=== PATIENT | male | born 1960 | race Two or more races ===

== ENCOUNTER 2020-11-05 12:56 | Outpatient (REF) | payer OTHER, SELFPAY ==
[2020-11-05 14:00] LABS: MANUAL DIFF FLAG NO
[2020-11-05 14:19] LABS: Basophils Percent Auto 0.8 % (0-2); Eosinophils Absolute Auto 0.1 X10*3/uL (0.0-0.4); Eosinophils Percent Auto 1.8 % (0-4); Hematocrit 47.3 % (42-52); Hemoglobin 16.3 g/dl (14.0-18.0); Imm Gran Abs Auto 0.01 X10*3/uL (0.00-0.03); Imm Gran Pct Auto 0.2 % (0.0-0.4); Lymphocytes Absolute Auto 1.8 X10*3/uL (1.2-4.9); Lymphocytes Percent Auto 36.4 % (20-40); Mean Corpuscular HGB Conc 34.5 g/dl (31.0-36.0); Mean Corpuscular Hemoglobin 33.1 pg (27.0-33.0); Mean Corpuscular Volume 95.9 fL (80-98); Mean Platelet Volume 9.4 fL (9.4-12.4); Monocytes Absolute Auto 0.7 X10*3/uL (0.1-1.2); Monocytes Percent Auto 12.9 % (2-11); Neutrophils Absolute Auto 2.4 X10*3/uL (2.0-8.3); Neutrophils Percent Auto 47.9 % (45-73); Platelet Count 272 X10*3/uL (160-400); Red Blood Count 4.93 X10*6/uL (4.60-5.80); Red Cell Distribution Width 11.7 % (11.0-16.0)
[2020-11-05 14:33] LABS: Alanine Aminotransferase 16 U/L (0-40); Albumin Level 4.4 g/dL (3.5-5.0); Alkaline Phosphatase 63 U/L (39-117); Anion Gap 13 (12-20); Aspartate Amino Transferase 19 U/L (5-37); Bilirubin Direct 0.3 mg/dL (0.0-0.5); Bilirubin Total 0.9 mg/dL (0.0-1.0); Blood Urea Nitrogen 11 mg/dL (9-16); Calcium 9.1 mg/dL (8.4-10.2); Carbon Dioxide 27 mmol/L (22-29); Chloride 103 mmol/L (96-108); Estimated Glomerular Filt Rate 59; Glucose Random 73 mg/dL (60-115); Potassium 4.4 mmol/L (3.3-5.1); Sodium 139 mmol/L (135-145); Total Protein 7.2 g/dL (6.5-8.0)
[2020-11-05 14:49] LABS: Syphilis Screen Nonreactive (Nonreactive)
[2020-11-05 14:54] LABS: Vitamin D 25-OH Total 27.5 ng/mL (>30)
[2020-11-06 15:58] LABS: Absolute CD3 Count 1472 cells/uL (840-3060); Absolute CD4 Count 713 cells/uL (490-1740); Absolute CD8 Count 762 cells/uL (180-1170); Absolute Lymphocytes 1901 cells/uL (850-3900); CD4 CD8 Ratio 0.94 (0.86-5.00); Percent CD3 Cells 77 % (57-85); Percent CD4 Cells 38 % (30-61); Percent CD8 Cells 40 % (12-42)
[2020-11-07 13:13] LABS: HIV RNA PCR Qn Copies <20 DETECTED copies/mL (NOT DETECTED); HIV RNA PCR Qn Log Copies <1.30 DETECTED (NOT DETECTED)
== END 2020-11-05 12:57 | disposition home or self-care (01) ==
LOC: HO.LAB 12:56
PROVIDERS: Absent Provider Internal Medicine Addiction Medicine; PCP Internal Medicine; Visit Provider Internal Medicine
DX: M17.12 Unilateral primary osteoarthritis, left knee (principal); Z21 Asymptomatic human immunodeficiency virus [HIV] infection status; E55.9 Vitamin D deficiency, unspecified
CPT/HCPCS: 36415; 80048; 80076; 82306; 85025; 86359; 86360; 86780; 87536

== ENCOUNTER 2020-11-11 14:07 | Outpatient (REF) | payer OTHER, SELFPAY ==
--- NOTE | ~2020-11-11 | MM_ITS ---
EXAMINATION: BONE DENSITOMETRY CLINICAL INDICATION: Screening for osteoporosis. COMPARISON: None (current study represents initial baseline exam). TECHNIQUE: Using a [employer] DXA System (software version: 13.1) manufactured by [employer], dual-energy x-ray absorptiometry was performed of the lumbar spine and left hip. The images are of good technical quality. Summary results are attached. FINDINGS: AP SPINE L1-L4: BMD 1.190 g/cm2, Z-score 0.0, T-score -0.2, normal. LEFT FEMUR, NECK: BMD 0.871 g/cm2, Z-score -0.7, T-score -1.5, osteopenia. LEFT FEMUR, TOTAL: BMD 1.055 g/cm2, Z-score 0.1, T-score -0.3, normal. IDENTIFIED RISK FACTORS: None listed. HISTORY OF FRACTURE: None listed. MEDICATIONS: None listed. MM/XR DEXA axial skeleton IMPRESSION: 1. DIAGNOSIS: Osteopenia based on the lowest T-score value of -1.5 in the femoral neck applying World Health Organization criteria. 2. 10-YEAR FRACTURE RISK PREDICTION, FRAX: Major osteoporotic fracture (clinical spine, forearm, hip or shoulder) 3.2%. Hip fracture 0.4%. 3. Treatment Recommendations: NOF guidelines recommend consideration for treatment in postmenopausal women and men age 50 and older presenting with the following: -A hip or vertebral (clinical or morphometric) fracture. -T-score less than or equal to -2.5 at the femoral neck or spine after appropriate evaluation to exclude secondary causes. -Low bone mass at the hip or spine and a 10-year fracture probability by FRAX of greater than or equal to 3% for hip fracture or greater than or equal to 20% for major osteoporotic fracture based on the [place] adapted WHO algorithm. 4. Other Recommendations: All treatment decisions require clinical judgment and consideration of individual patient factors, including patient preferences, comorbidities, previous drug use, risk factors not captured in the FRAX model (e.g. frailty, falls, vitamin D deficiency, increased bone turnover, interval significant decline in bone density) and possible under or overestimation of fracture risk by FRAX. Additional medical evaluation for secondary cause of low bone mineral density may be appropriate. FUTURE SCAN RECOMMENDATION: People with diagnosed cases of osteoporosis or at high risk for fracture should have regular bone mineral density tests. For patients eligible for Medicare, routine testing is allowed once every 2 years. The testing frequency can be increased to one year for patients who have rapidly progressing disease, those who are receiving or discontinuing medical therapy to restore bone mass, or have additional risk factors.
== END 2020-11-11 14:08 | disposition home or self-care (01) ==
LOC: HO.MAMMO 14:07
PROVIDERS: Visit Provider Internal Medicine
DX: Z13.820 Encounter for screening for osteoporosis (principal); E55.9 Vitamin D deficiency, unspecified
CPT/HCPCS: 77080

== ENCOUNTER → 2020-11-28 13:11 | Outpatient (BNVA) | payer OTHER, SELFPAY | PROVIDERS: Visit Provider Internal Medicine | DX: B20 Human immunodeficiency virus [HIV] disease (principal) | CPT/HCPCS: 99212 ==

== ENCOUNTER 2021-05-15 11:44 | Outpatient (REF) | payer OTHER, SELFPAY ==
[2021-05-16 11:22] LABS: HIV RNA PCR Qn Copies 105 copies/mL (NOT DETECTED); HIV RNA PCR Qn Log Copies 2.02 (NOT DETECTED)
[2021-05-18 15:21] LABS: Absolute CD3 Count 1308 cells/uL (840-3060); Absolute CD4 Count 679 cells/uL (490-1740); Absolute CD8 Count 644 cells/uL (180-1170); Absolute Lymphocytes 1687 cells/uL (850-3900); CD4 CD8 Ratio 1.05 (0.86-5.00); Percent CD3 Cells 78 % (57-85); Percent CD4 Cells 40 % (30-61); Percent CD8 Cells 38 % (12-42)
== END 2021-05-15 11:45 | disposition home or self-care (01) ==
LOC: HO.LAB 11:44
PROVIDERS: Absent Provider Internal Medicine; PCP Internal Medicine; Visit Provider Internal Medicine Addiction Medicine
DX: B20 Human immunodeficiency virus [HIV] disease (principal); E55.9 Vitamin D deficiency, unspecified
CPT/HCPCS: 36415; 82306; 86359; 86360; 87536

== ENCOUNTER → 2021-05-29 11:23 | Outpatient (BNVA) | payer OTHER, SELFPAY | PROVIDERS: PCP Internal Medicine; Visit Provider Internal Medicine | DX: B20 Human immunodeficiency virus [HIV] disease (principal); I10 Essential (primary) hypertension | CPT/HCPCS: 99212 ==

== ENCOUNTER 2021-07-21 13:30 | Outpatient (REF) | payer OTHER, SELFPAY ==
[2021-07-21 14:06] LABS: Hematocrit 46.2 % (42-52); Mean Corpuscular HGB Conc 34.6 g/dl (31.0-36.0); Mean Corpuscular Hemoglobin 33.1 pg (27.0-33.0); Mean Corpuscular Volume 95.7 fL (80-98); Mean Platelet Volume 9.4 fL (9.4-12.4); Platelet Count 267 X10*3/uL (160-400); Red Blood Count 4.83 X10*6/uL (4.60-5.80); Red Cell Distribution Width 11.9 % (11.0-16.0); White Blood Count 4.7 X10*3/uL (4.8-10.8)
[2021-07-21 14:34] LABS: Alanine Aminotransferase 20 U/L (0-40); Albumin Level 4.5 g/dL (3.5-5.0); Alkaline Phosphatase 71 U/L (39-117); Anion Gap 15 (12-20); Aspartate Amino Transferase 24 U/L (5-37); Bilirubin Direct 0.3 mg/dL (0.0-0.5); Bilirubin Total 0.8 mg/dL (0.0-1.0); Blood Urea Nitrogen 9 mg/dL (9-16); Calcium 9.2 mg/dL (8.4-10.2); Carbon Dioxide 26 mmol/L (22-29); Chloride 104 mmol/L (96-108); Estimated Glomerular Filt Rate 53; Glucose Random 82 mg/dL (60-115); Potassium 4.6 mmol/L (3.3-5.1); Sodium 140 mmol/L (135-145); Total Protein 7.2 g/dL (6.5-8.0)
[2021-07-22 07:55] LABS: ~HepC Num1 0.04 S/CO (0.00-0.79); ~Hepatitis C Antibody Nonreactive (Nonreactive)
[2021-07-22 08:06] LABS: Syphilis Screen Nonreactive (Nonreactive)
[2021-07-22 14:17] LABS: HIV RNA PCR Qn Copies 69 copies/mL (NOT DETECTED); HIV RNA PCR Qn Log Copies 1.84 (NOT DETECTED)
[2021-07-22 15:06] LABS: Absolute CD3 Count 1612 cells/uL (840-3060); Absolute CD4 Count 803 cells/uL (490-1740); Absolute CD8 Count 808 cells/uL (180-1170); Absolute Lymphocytes 2046 cells/uL (850-3900); CD4 CD8 Ratio 0.99 (0.86-5.00); Percent CD3 Cells 79 % (57-85); Percent CD4 Cells 39 % (30-61); Percent CD8 Cells 39 % (12-42)
== END 2021-07-21 13:31 | disposition home or self-care (01) ==
LOC: HO.LAB 13:30
PROVIDERS: PCP Internal Medicine; Visit Provider Internal Medicine
DX: B20 Human immunodeficiency virus [HIV] disease (principal)
CPT/HCPCS: 36415; 80048; 80076; 85027; 86359; 86360; 86780; 86803; 87536

== ENCOUNTER 2021-11-19 14:27 | Outpatient (REF) | payer OTHER, SELFPAY ==
[2021-11-20 12:37] LABS: Absolute CD3 Count 1853 cells/uL (840-3060); Absolute CD4 Count 901 cells/uL (490-1740); Absolute CD8 Count 957 cells/uL (180-1170); Absolute Lymphocytes 2692 cells/uL (850-3900); CD4 CD8 Ratio 0.94 (0.86-5.00); Percent CD3 Cells 69 % (57-85); Percent CD4 Cells 33 % (30-61); Percent CD8 Cells 36 % (12-42)
[2021-11-24 18:17] LABS: HIV RNA PCR Qn Copies <20 Copies/mL; HIV RNA PCR Qn Log Copies <1.30 Log cps/mL
== END 2021-11-19 14:28 | disposition home or self-care (01) ==
LOC: HO.LAB 14:27
PROVIDERS: PCP Internal Medicine; Visit Provider Internal Medicine
DX: B20 Human immunodeficiency virus [HIV] disease (principal)
CPT/HCPCS: 36415; 86359; 86360; 87536

== ENCOUNTER → 2021-11-24 11:21 | Outpatient (BNVA) | payer OTHER, SELFPAY | PROVIDERS: Visit Provider Internal Medicine | DX: B20 Human immunodeficiency virus [HIV] disease (principal) | CPT/HCPCS: 99212 ==

== ENCOUNTER 2022-05-21 16:29 | Outpatient (REF) | payer OTHER, SELFPAY ==
[2022-05-24 16:57] LABS: Absolute CD3 Count 1805 cells/uL (840-3060); Absolute CD4 Count 888 cells/uL (490-1740); Absolute CD8 Count 946 cells/uL (180-1170); Absolute Lymphocytes 2304 cells/uL (850-3900); CD4 CD8 Ratio 0.94 (0.86-5.00); Percent CD3 Cells 78 % (57-85); Percent CD4 Cells 39 % (30-61); Percent CD8 Cells 41 % (12-42)
[2022-05-25 13:02] LABS: HIV RNA PCR Qn Copies NOT DETECTED copies/mL (NOT DETECTED); HIV RNA PCR Qn Log Copies NOT DETECTED (NOT DETECTED)
== END 2022-05-21 16:30 | disposition home or self-care (01) ==
LOC: HO.LAB 16:29
PROVIDERS: Visit Provider Internal Medicine
DX: B20 Human immunodeficiency virus [HIV] disease (principal)
CPT/HCPCS: 36415; 86359; 86360; 87536

== ENCOUNTER → 2022-06-02 11:23 | Outpatient (BNVA) | payer OTHER, SELFPAY | PROVIDERS: PCP Internal Medicine; Visit Provider Internal Medicine | DX: B20 Human immunodeficiency virus [HIV] disease (principal) | CPT/HCPCS: 99212 ==

== ENCOUNTER 2022-11-16 13:28 | Outpatient (REF) | payer OTHER, SELFPAY ==
[2022-11-17 04:24] LABS: Syphilis Screen Nonreactive (Nonreactive)
[2022-11-17 04:53] LABS: HBS Num1 > 1000.00 mIU/mL (0-7.99); HBc Num1 0.07 S/CO (0.00-0.79); HBsAGNum1 0.26 S/CO (0.00-0.99); Hepatitis B Core Antibody Nonreactive (Nonreactive); Hepatitis B Surface Antigen Negative (Negative); ~HepC Num1 0.07 S/CO (0.00-0.79); ~Hepatitis B Surface Antibody REACTIVE (Nonreactive); ~Hepatitis C Antibody Nonreactive (Nonreactive)
[2022-11-17 20:39] LABS: HIV RNA PCR Qn Copies 26 copies/mL (NOT DETECTED); HIV RNA PCR Qn Log Copies 1.41 (NOT DETECTED)
[2022-11-18 13:53] LABS: Absolute CD3 Count 1944 cells/uL (840-3060); Absolute CD4 Count 871 cells/uL (490-1740); Absolute CD8 Count 1075 cells/uL (180-1170); Absolute Lymphocytes 2519 cells/uL (850-3900); CD4 CD8 Ratio 0.81 (0.86-5.00); Percent CD3 Cells 77 % (57-85); Percent CD4 Cells 35 % (30-61); Percent CD8 Cells 43 % (12-42)
[2022-11-18 13:58] LABS: Hepatitis B Viral DNA Qn - cp <1.00 NOT DETECTED Log IU/mL (NOT DETECTED); Hepatitis B Viral DNA Qn-IU/mL <10 NOT DETECTED IU/mL (NOT DETECTED)
== END 2022-11-16 13:29 | disposition home or self-care (01) ==
LOC: HO.LAB 13:28
PROVIDERS: PCP Internal Medicine; Visit Provider Internal Medicine
DX: B20 Human immunodeficiency virus [HIV] disease (principal)
CPT/HCPCS: 36415; 86359; 86360; 86704; 86706; 86780; 86803; 87340; 87517; 87536

== ENCOUNTER → 2022-12-01 11:14 | Outpatient (BNVA) | payer OTHER, SELFPAY | PROVIDERS: PCP Internal Medicine; Visit Provider Internal Medicine | DX: B20 Human immunodeficiency virus [HIV] disease (principal) | CPT/HCPCS: 99212 ==

== ENCOUNTER 2023-05-23 13:46 | Outpatient (REF) | payer OTHER, SELFPAY ==
[2023-05-24 04:24] LABS: ~HepC Num1 0.05 S/CO (0.00-0.79); ~Hepatitis C Antibody Nonreactive (Nonreactive)
[2023-05-24 13:38] LABS: Absolute CD3 Count 2099 cells/uL (840-3060); Absolute CD4 Count 1029 cells/uL (490-1740); Absolute CD8 Count 1075 cells/uL (180-1170); Absolute Lymphocytes 2702 cells/uL (850-3900); CD4 CD8 Ratio 0.96 (0.86-5.00); Percent CD3 Cells 78 % (57-85); Percent CD4 Cells 38 % (30-61); Percent CD8 Cells 40 % (12-42)
[2023-05-25 04:07] LABS: Syphilis Screen Nonreactive (Nonreactive)
[2023-05-26 13:23] LABS: Hepatitis B Viral DNA Qn - cp NOT DETECTED Log IU/mL (NOT DETECTED); Hepatitis B Viral DNA Qn-IU/mL NOT DETECTED (NOT DETECTED)
[2023-05-26 15:07] LABS: HIV RNA PCR Qn Copies NOT DETECTED copies/mL (NOT DETECTED); HIV RNA PCR Qn Log Copies NOT DETECTED (NOT DETECTED)
== END 2023-05-23 13:47 | disposition home or self-care (01) ==
LOC: HO.LAB 13:46
PROVIDERS: PCP Internal Medicine; Visit Provider Internal Medicine
DX: B20 Human immunodeficiency virus [HIV] disease (principal)
CPT/HCPCS: 36415; 86359; 86360; 86780; 86803; 87517; 87536

== ENCOUNTER 2023-06-08 10:51 | Outpatient (AMB) | payer OTHER, SELFPAY ==
--- NOTE | 2023-06-08 10:49 | MHC.OFFVIS ---
Intake Vital Signs 06/08/23 10:51 Height 5 ft 6 in Weight 181 lb BMI 29.2 BP 110/70 Blood Pressure Location Lt brachial Position Sitting Pulse 72 Pulse Source Pulse Oximeter Pulse Oximetry (%) 98 Intake Visit Reasons: F/U 6 mth Lab Allergies No Known Allergies Allergy (Verified 06/08/23 10:56) HPI F/U 6 mth Lab HPI Details He has been doing well with Biktarvy and is undetectable with CD4 count of 1159 on 05/23. He has not had physical he says in two years and has not seen his doctor to do lack of appointment availability. He would like to change providers. [facility] Medical History HIV disease HTN (hypertension) Social History Alcohol intake: current Patient Tobacco Use Status: Never used Tobacco Review of Systems Const All systems reviewed & are unremarkable except as noted in HPI and below Physical Exam Vital Signs: Last Vital Signs Pulse 72 06/08/23 10:51 BP 110/70 06/08/23 10:51 Pulse Ox 98 06/08/23 10:51 BMI result Body Mass Index 29.2 Const General: cooperative Orientation/consciousness: patient oriented x3 HEENT Head: Yes normal to inspection Mouth: Normal oral and palatal mucosa present Eyes General: appearance normal, both eyes and all related structures Pupils: Equal, round and reactive pupils present Resp Effort & Inspection: normal respiratory effort Cardio Rate: regular rate Rhythm: regular rhythm GI Palpation (GI): Soft to palpation and nontender General: Yes no CVA tenderness Back/Spine/Pelvis Back: no CVA tenderness Skin General skin exam: no rashes or lesions noted Neuro General: patient oriented x3 Cranial nerves: Yes CN's II-XII intact bilaterally and Yes Equal, round and reactive pupils present Extrem General: Yes normal to inspection Psych Appearance: grossly normal Assessment & Plan Assessment & Plan (1) HIV disease: Comment: He is doing well and has well preserved immune system. His CD4 count is 1159 and viral load undetectable 05/2023. Syphilis and Heptatitis B and C nonreactive. Code(s): B20 - Human immunodeficiency virus [HIV] disease Plan: Refill Biktarvy 90 d and one refill See in six months Medications: Refilled [id number] ala 50-200-25 mg (Biktarvy) 1 tab PO DAILY 90 tabs 1RF 90 days Coding Level of Care Code Est Pt Level 3 (97756) Diagnoses HIV disease B20
[2023-06-08 10:51] VITALS: BP 110/70; PULSE 72; O2SAT 98; BMI 29.2
== END 2023-06-08 11:35 | disposition home or self-care (01) ==
LOC: HO.HID 10:51
PROVIDERS: PCP Internal Medicine; Visit Provider Internal Medicine
DX: B20 Human immunodeficiency virus [HIV] disease (principal)
CPT/HCPCS: 99213

== ENCOUNTER → 2023-06-08 10:51 | Outpatient (BNVA) | payer OTHER, SELFPAY | PROVIDERS: PCP Internal Medicine; Visit Provider Internal Medicine | DX: B20 Human immunodeficiency virus [HIV] disease (principal); I10 Essential (primary) hypertension; Z79.899 Other long term (current) drug therapy | CPT/HCPCS: 99212 ==

== ENCOUNTER 2023-11-18 11:41 | Outpatient (REF) | payer OTHER, SELFPAY ==
[2023-11-18 14:34] LABS: MANUAL DIFF FLAG NO
[2023-11-18 14:39] LABS: Basophils Percent Auto 0.6 % (0-2); Eosinophils Absolute Auto 0.1 X10*3/uL (0.0-0.4); Eosinophils Percent Auto 1.6 % (0-4); Hematocrit 46.8 % (42.0-52.0); Hemoglobin 15.8 g/dl (14.0-18.0); Imm Gran Abs Auto 0.01 X10*3/uL (0.00-0.03); Imm Gran Pct Auto 0.2 % (0.0-0.4); Lymphocytes Absolute Auto 1.9 X10*3/uL (1.2-4.9); Lymphocytes Percent Auto 37.8 % (20-40); Mean Corpuscular HGB Conc 33.8 g/dl (31.0-36.0); Mean Corpuscular Hemoglobin 32.2 pg (27.0-33.0); Mean Corpuscular Volume 95.3 fL (80.0-98.0); Mean Platelet Volume 9.4 fL (9.4-12.4); Monocytes Absolute Auto 0.6 X10*3/uL (0.1-1.2); Monocytes Percent Auto 11.4 % (2-11); Neutrophils Absolute Auto 2.4 x10*3/uL (2.0-8.3); Neutrophils Percent Auto 48.4 % (45-73); Platelet Count 229 X10*3/uL (160-400); Red Blood Count 4.91 X10*6/uL (4.60-5.80); Red Cell Distribution Width 12.3 % (11.0-16.0)
[2023-11-18 15:07] LABS: Alanine Aminotransferase 18 U/L (0-40); Alkaline Phosphatase 68 U/L (39-117); Anion Gap 14 (12-20); Aspartate Amino Transferase 20 U/L (5-37); Bilirubin Total 0.7 mg/dL (0.0-1.0); Blood Urea Nitrogen 10 mg/dL (9-16); Carbon Dioxide 26 mmol/L (22-29); Chloride 104 mmol/L (96-108); Cholesterol 165 mg/dL (<200); Estimated Glomerular Filt Rate 57; Glucose Random 72 mg/dL (60-115); HDL Cholesterol 26 mg/dL (>40); LDL Cholesterol Calculated 116 mg/dL (<100); Potassium 3.9 mmol/L (3.3-5.1); Sodium 140 mmol/L (135-145); Total Protein 6.8 g/dL (6.5-8.0); Triglycerides 115 mg/dL (<150)
[2023-11-18 15:17] LABS: Reflex LDLD? No
[2023-11-18 15:22] LABS: Prostate Specific Antigen 3.58 ng/mL (<0.05-4.0)
[2023-11-18 15:24] LABS: TSH reflex Free T4 3.25 uIU/mL (0.32-4.0)
[2023-11-20 20:28] LABS: TS Negative Control Passed; TS Panel A 0; TS Panel B 0; TS Positive Control Passed; TSpotTB Negative (Negative)
[2023-11-21 10:18] LABS: Absolute CD3 Count 1508 cells/uL (840-3060); Absolute CD4 Count 763 cells/uL (490-1740); Absolute CD8 Count 760 cells/uL (180-1170); Absolute Lymphocytes 1892 cells/uL (850-3900); Percent CD3 Cells 80 % (57-85); Percent CD4 Cells 40 % (30-61); Percent CD8 Cells 40 % (12-42)
[2023-11-22 03:01] LABS: Syphilis Screen Nonreactive (Nonreactive)
[2023-11-22 03:35] LABS: ~HepC Num1 0.09 S/CO (0.00-0.79); ~Hepatitis C Antibody Nonreactive (Nonreactive)
[2023-11-23 19:43] LABS: HIV RNA PCR Qn Copies NOT DETECTED copies/mL (NOT DETECTED); HIV RNA PCR Qn Log Copies NOT DETECTED (NOT DETECTED)
== END 2023-11-18 11:42 | disposition home or self-care (01) ==
LOC: HO.CHCLDS 11:41
PROVIDERS: Referring Provider Internal Medicine; Visit Provider Internal Medicine
DX: Z00.00 Encounter for general adult medical examination without abnormal findings (principal); B20 Human immunodeficiency virus [HIV] disease; Z12.5 Encounter for screening for malignant neoplasm of prostate
CPT/HCPCS: 36415; 80053; 80061; 84153; 84443; 85025; 86359; 86360; 86481; 86780; 86803; 87536

== ENCOUNTER 2024-05-14 15:15 | Outpatient (REF) | payer OTHER, SELFPAY ==
[2024-05-14 16:15] LABS: MANUAL DIFF FLAG NO
[2024-05-14 16:22] LABS: Basophils Percent Auto 0.5 % (0-2); Eosinophils Absolute Auto 0.1 X10*3/uL (0.0-0.4); Eosinophils Percent Auto 1.4 % (0-4); Hematocrit 47.2 % (42.0-52.0); Hemoglobin 16.8 g/dl (14.0-18.0); Imm Gran Abs Auto 0.01 X10*3/uL (0.00-0.03); Imm Gran Pct Auto 0.2 % (0.0-0.4); Lymphocytes Absolute Auto 2.2 X10*3/uL (1.2-4.9); Lymphocytes Percent Auto 39.4 % (20-40); Mean Corpuscular HGB Conc 35.6 g/dl (31.0-36.0); Mean Corpuscular Hemoglobin 34.2 pg (27.0-33.0); Mean Corpuscular Volume 96.1 fL (80.0-98.0); Mean Platelet Volume 9.6 fL (9.4-12.4); Monocytes Absolute Auto 0.6 X10*3/uL (0.1-1.2); Monocytes Percent Auto 10.4 % (2-11); Neutrophils Absolute Auto 2.7 x10*3/uL (2.0-8.3); Neutrophils Percent Auto 48.1 % (45-73); Platelet Count 264 X10*3/uL (160-400); Red Blood Count 4.91 X10*6/uL (4.60-5.80); Red Cell Distribution Width 11.9 % (11.0-16.0); White Blood Count 5.6 X10*3/uL (4.8-10.8)
[2024-05-14 16:56] LABS: Alanine Aminotransferase 17 U/L (0-40); Albumin Level 4.3 g/dL (3.5-5.0); Alkaline Phosphatase 78 U/L (39-117); Anion Gap 15 (12-20); Aspartate Amino Transferase 20 U/L (5-37); Bilirubin Total 0.7 mg/dL (0.0-1.0); Blood Urea Nitrogen 10 mg/dL (9-16); Calcium 9.6 mg/dL (8.4-10.2); Carbon Dioxide 23 mmol/L (22-29); Chloride 104 mmol/L (96-108); Estimated Glomerular Filt Rate 52; Glucose Random 98 mg/dL (60-115); Potassium 3.9 mmol/L (3.3-5.1); Sodium 138 mmol/L (135-145); Total Protein 7.2 g/dL (6.5-8.0)
[2024-05-17 08:27] LABS: HIV RNA PCR Qn Copies 253 copies/mL (NOT DETECTED)
[2024-05-17 18:58] LABS: Absolute CD3 Count 1763 cells/uL (840-3060); Absolute CD4 Count 898 cells/uL (490-1740); Absolute CD8 Count 907 cells/uL (180-1170); Absolute Lymphocytes 2316 cells/uL (850-3900); CD4 CD8 Ratio 0.99 (0.86-5.00); Percent CD3 Cells 76 % (57-85); Percent CD4 Cells 39 % (30-61); Percent CD8 Cells 39 % (12-42)
== END 2024-05-14 15:16 | disposition home or self-care (01) ==
LOC: HO.HHCL 15:15
PROVIDERS: Visit Provider Internal Medicine
DX: Z21 Asymptomatic human immunodeficiency virus [HIV] infection status (principal)
CPT/HCPCS: 36415; 80053; 85025; 86359; 86360; 87536

== ENCOUNTER 2024-09-14 14:14 | Outpatient (REF) | payer OTHER, SELFPAY ==
[2024-09-17 14:53] LABS: HIV RNA PCR Qn Copies 269 copies/mL (NOT DETECTED); HIV RNA PCR Qn Log Copies 2.43 (NOT DETECTED)
== END 2024-09-14 14:15 | disposition home or self-care (01) ==
LOC: HO.HHCL 14:14
PROVIDERS: Visit Provider Internal Medicine
DX: Z21 Asymptomatic human immunodeficiency virus [HIV] infection status (principal)
CPT/HCPCS: 36415; 87536

== ENCOUNTER 2024-09-18 14:06 | Outpatient (REF) | payer OTHER, SELFPAY | END 2024-09-18 14:07 | disposition home or self-care (01) | LOC: HO.HHCL 14:06 | PROVIDERS: Visit Provider Internal Medicine | DX: B20 Human immunodeficiency virus [HIV] disease (principal) | CPT/HCPCS: 36415; 87900; 87901; 87906 ==

== ENCOUNTER 2024-12-10 10:39 | Outpatient (REF) | payer OTHER, SELFPAY ==
[2024-12-10 11:26] LABS: MANUAL DIFF FLAG NO
[2024-12-10 11:34] LABS: Basophils Percent Auto 0.8 % (0-2); Eosinophils Absolute Auto 0.1 X10*3/uL (0.0-0.4); Eosinophils Percent Auto 2.1 % (0-4); Hematocrit 48.6 % (42.0-52.0); Hemoglobin 16.5 g/dl (14.0-18.0); Imm Gran Abs Auto 0.02 X10*3/uL (0.00-0.03); Imm Gran Pct Auto 0.4 % (0.0-0.4); Mean Corpuscular Hemoglobin 32.7 pg (27.0-33.0); Mean Corpuscular Volume 96.4 fL (80.0-98.0); Mean Platelet Volume 8.8 fL (9.4-12.4); Monocytes Absolute Auto 0.6 X10*3/uL (0.1-1.2); Monocytes Percent Auto 10.7 % (2-11); Neutrophils Absolute Auto 2.6 x10*3/uL (2.0-8.3); Platelet Count 264 X10*3/uL (160-400); Red Blood Count 5.04 X10*6/uL (4.60-5.80); Red Cell Distribution Width 12.2 % (11.0-16.0); White Blood Count 5.3 X10*3/uL (4.8-10.8)
[2024-12-10 12:57] LABS: Alanine Aminotransferase 24 U/L (0-40); Albumin Level 4.2 g/dL (3.5-5.0); Alkaline Phosphatase 70 U/L (39-117); Anion Gap 12 (12-20); Aspartate Amino Transferase 25 U/L (5-37); Bilirubin Total 0.8 mg/dL (0.0-1.0); Blood Urea Nitrogen 14 mg/dL (9-16); Calcium 8.8 mg/dL (8.4-10.2); Carbon Dioxide 26 mmol/L (22-29); Chloride 108 mmol/L (96-108); Cholesterol 193 mg/dL (<200); Estimated Glomerular Filt Rate > 60; Glucose Random 93 mg/dL (60-115); HDL Cholesterol 30 mg/dL (>40); LDL Cholesterol Calculated 140 mg/dL (<100); Potassium 4.2 mmol/L (3.3-5.1); Sodium 142 mmol/L (135-145); Total Protein 7.8 g/dL (6.5-8.0); Triglycerides 115 mg/dL (<150)
[2024-12-10 13:18] LABS: Syphilis Screen Nonreactive (Nonreactive); ~HepC Num1 0.12 S/CO (0.00-0.79); ~Hepatitis C Antibody Nonreactive (Nonreactive)
[2024-12-10 13:34] LABS: Reflex LDLD? No
[2024-12-12 15:33] LABS: HIV RNA PCR Qn Copies NOT DETECTED copies/mL (NOT DETECTED); HIV RNA PCR Qn Log Copies NOT DETECTED (NOT DETECTED)
[2024-12-13 14:08] LABS: TS Negative Control Passed; TS Panel A 0; TS Panel B 1; TS Positive Control Passed; TSpotTB Negative (Negative)
[2024-12-15 15:08] LABS: Absolute CD3 Count 1652 cells/uL (840-3060); Absolute CD4 Count 788 cells/uL (490-1740); Absolute CD8 Count 868 cells/uL (180-1170); Absolute Lymphocytes 2113 cells/uL (850-3900); CD4 CD8 Ratio 0.91 (0.86-5.00); Percent CD3 Cells 78 % (57-85); Percent CD4 Cells 37 % (30-61); Percent CD8 Cells 41 % (12-42)
== END 2024-12-10 10:40 | disposition home or self-care (01) ==
LOC: HO.HHCL 10:39
PROVIDERS: Visit Provider Internal Medicine
DX: B20 Human immunodeficiency virus [HIV] disease (principal)
CPT/HCPCS: 36415; 80053; 80061; 85025; 86359; 86360; 86481; 86780; 86803; 87536

== ENCOUNTER 2025-01-10 16:10 | Outpatient (REF) | payer OTHER, SELFPAY | END 2025-01-10 16:11 | disposition home or self-care (01) | LOC: HO.HHCLNP 16:10 | PROVIDERS: Visit Provider Internal Medicine | DX: Z21 Asymptomatic human immunodeficiency virus [HIV] infection status (principal) | CPT/HCPCS: 88112 ==

== ENCOUNTER 2025-07-09 13:37 | Outpatient (REF) | payer OTHER, SELFPAY ==
[2025-07-09 16:10] LABS: MANUAL DIFF FLAG NO
[2025-07-09 16:22] LABS: Hematocrit 45.5 % (42.0-52.0); Hemoglobin 15.5 g/dl (14.0-18.0); Imm Gran Abs Auto 0.04 X10*3/uL (0.00-0.03); Imm Gran Pct Auto 0.8 % (0.0-0.4); Lymphocytes Absolute Auto 2.1 X10*3/uL (1.2-4.9); Mean Corpuscular HGB Conc 34.1 g/dl (31.0-36.0); Mean Corpuscular Hemoglobin 32.9 pg (27.0-33.0); Mean Corpuscular Volume 96.6 fL (80.0-98.0); NRBC Abs Auto 0.000 X10*3/uL (0.0-0.012); NRBC Pct Auto 0.0 /100WBC (0.0-0.2); Platelet Count 269 X10*3/uL (160-400); Red Blood Count 4.71 X10*6/uL (4.60-5.80); White Blood Count 5.3 X10*3/uL (4.8-10.8)
[2025-07-09 16:33] LABS: Alanine Aminotransferase 15 U/L (0-40); Albumin Level 4.4 g/dL (3.5-5.0); Alkaline Phosphatase 76 U/L (39-117); Anion Gap 12 (12-20); Aspartate Amino Transferase 21 U/L (5-37); Blood Urea Nitrogen 14 mg/dL (9-16); Calcium 9.0 mg/dL (8.4-10.2); Carbon Dioxide 29 mmol/L (22-29); Chloride 105 mmol/L (96-108); Estimated Glomerular Filt Rate 59; Potassium 3.8 mmol/L (3.3-5.1); Sodium 142 mmol/L (135-145); Total Protein 7.1 g/dL (6.5-8.0)
[2025-07-10 19:53] LABS: HIV RNA PCR Qn Copies 214 copies/mL (NOT DETECTED); HIV RNA PCR Qn Log Copies 2.33 (NOT DETECTED)
[2025-07-12 18:18] LABS: Absolute CD3 Count 1529 cells/uL (840-3060); Absolute CD8 Count 770 cells/uL (180-1170); Percent CD3 Cells 76 % (57-85); Percent CD8 Cells 38 % (12-42)
== END 2025-07-09 13:38 | disposition home or self-care (01) ==
LOC: HO.HHCL 13:37
PROVIDERS: Visit Provider Internal Medicine
DX: Z21 Asymptomatic human immunodeficiency virus [HIV] infection status (principal)
CPT/HCPCS: 36415; 80053; 85025; 86359; 86360; 87536

== ENCOUNTER 2025-07-25 15:15 | Outpatient (REF) | payer OTHER, SELFPAY ==
[2025-07-25 18:16] LABS: Cholesterol 198 mg/dL (<200); HDL Cholesterol 36 mg/dL (>40); Triglycerides 105 mg/dL (<150)
== END 2025-07-25 15:16 | disposition home or self-care (01) ==
LOC: HO.CHCLDS 15:15
PROVIDERS: Visit Provider Internal Medicine
DX: I10 Essential (primary) hypertension (principal)
CPT/HCPCS: 36415; 80061

== ENCOUNTER 2025-09-05 14:22 | Outpatient (REF) | payer OTHER, SELFPAY ==
[2025-09-07 04:53] LABS: HIV RNA PCR Qn Copies NOT DETECTED copies/mL (NOT DETECTED); HIV RNA PCR Qn Log Copies NOT DETECTED (NOT DETECTED)
== END 2025-09-05 14:23 | disposition home or self-care (01) ==
LOC: HO.LAB 14:22
PROVIDERS: PCP Internal Medicine; Visit Provider Internal Medicine
DX: B20 Human immunodeficiency virus [HIV] disease (principal)
CPT/HCPCS: 36415; 87536